=== PATIENT | female | born 1980 | race Caucasian/White ===

== ENCOUNTER 2019-10-08 15:23 | Inpatient (IN) | payer OTHER ==
[~2019-10-08] VITALS: Ht 165.1 cm; Wt 84.4 kg
[2019-10-08] MEDS ORDERED: DEXT 5%/LR + PITOCIN 20UNITS/L 1,000 ML IV SCH ×2 (15:50→19:00)
[2019-10-08] MEDS ORDERED: PENICILLIN G POTASSIUM 5 MMU in DEXT 5% WATER 100 ML IV SCH (16:00)
[2019-10-08] MEDS ORDERED: METHYLERGONOVINE MALEATE 0.2 MG/ML IM PRN (16:00)
[2019-10-08] MEDS ORDERED: LACTATED RINGERS 1,000 ML IV SCH (16:00)
[2019-10-08] MEDS ORDERED: BUTORPHANOL TARTRATE 2 MG/ML VIAL IV PRN (16:00)
[2019-10-08] MEDS ORDERED: LIDOCAINE HCL 1% 20ML VIAL (Pyxis) INJ INFIL SCH (16:00)
[2019-10-08] MEDS ORDERED: MISOPROSTOL 200MCG TABLET VG SCH (16:00)
[2019-10-08] MEDS ORDERED: NALOXONE HCL 0.4 MG/ML 1ML VIAL IM PRN (16:00)
[2019-10-08] MEDS ORDERED: CARBOPROST TROMETHAMINE 250 MCG/ML AMPUL IM PRN (16:00)
[2019-10-08] MEDS ORDERED: TERBUTALINE SULFATE 1MG/ML VIAL SUBCUT SCH (16:15)
[2019-10-08 16:28] LABS: CLARITY URINE CLEAR (CLEAR); COLOR URINE YELLOW (YELLOW); KETONES URINE 2+ (NEGATIVE); LEUKOCYTE ESTERASE URINE 1+ (NEGATIVE); NITRITE URINE NEGATIVE (NEGATIVE); OCCULT BLOOD URINE 1+ (NEGATIVE); PH URINE 6.5 (4.5-8.0); PROTEIN URINE NEGATIVE (NEGATIVE); SPECIFIC GRAVITY URINE 1.018 (1.005-1.030); UROBILINOGEN URINE 0.2 E.U./dL (0.2-1.0)
[2019-10-08 16:29] LABS: BASOPHILS % 0.6 % (0.0-2.0); EOSINOPHILS % 0.3 % (0.0-5.0); HEMATOCRIT. 38.8 % (36.0-48.0); HEMOGLOBIN. 13.5 g/dL (12.0-16.0); LYMPHOCYTES % 32.4 % (20.0-50.0); MEAN CORPUSCULAR HEMOGLOBIN 32.9 pg (28.0-32.0); MEAN CORPUSCULAR VOLUME 94.9 fL (81.0-99.0); MEAN PLATELET VOLUME 12.4 fl (7.4-10.4); MONOCYTES % 5.7 % (2.0-8.0); PLATELET 135 x1000/uL (130-400); RED BLOOD CELL COUNT 4.09 mill/uL (4.2-5.4); RED CELL DISTRIBUTION WIDTH 12.7 % (11.6-14.6)
[2019-10-08] MEDS ORDERED: METOCLOPRAMIDE HCL 10MG/2ML VIAL ONE (16:30)
[2019-10-08] MEDS ORDERED: KETOROLAC 60MG/2ML VIAL IM ONE (16:30)
[2019-10-08] MEDS ORDERED: ONDANSETRON HCL 4MG/2ML INJ ONE (16:30)
[2019-10-08] MEDS ORDERED: BUPIVACAINE HCL/DEXTROSE/PF 0.75% 2ML AMP INJ ONE (16:30)
[2019-10-08] MEDS ORDERED: PHENYLEPHRINE HCL 10 MG/ML 1ML (IV VIAL) IV ONE (16:31)
[2019-10-08] MEDS ORDERED: SODIUM CHLORIDE 0.9% 10ML VIAL ONE ×2 (16:31→16:32)
[2019-10-08 16:35] LABS: INR 0.9; PARTIAL THROMBOPLASTIN TIME 23.1 sec (23.4-31.0)
[2019-10-08] MEDS ORDERED: FENTANYL CITRATE/PF 50MCG/ML 2ML VIAL ONE (16:35)
[2019-10-08] MEDS ORDERED: MORPHINE SULFATE/PF 1MG/ML 10ML AMP ONE (16:35)
[2019-10-08 16:43] LABS: *AMPHETAMINES SCREEN URINE NEGATIVE (NEGATIVE); *BARBITURATES SCREEN URINE NEGATIVE (NEGATIVE); *BENZODIAZEPINES SCREEN URINE NEGATIVE (NEGATIVE); *COCAINE SCREEN URINE NEGATIVE (NEGATIVE); CANNABINOID URINE SCREEN NEGATIVE (NEGATIVE); METHADONE URINE SCREEN NEGATIVE (NEGATIVE); OPIATES URINE SCREEN NEGATIVE (NEGATIVE); PHENCYCLIDINE URINE SCREEN NEGATIVE (NEGATIVE)
[2019-10-08] MEDS ORDERED: KETAMINE HCL 50 MG/ML 10ML ONE (17:06)
[2019-10-08 17:07] LABS: PROTHROMBIN TIME 8.9 sec (9.6-11.0)
[2019-10-08 17:10] LABS: HEPATITIS B SURFACE ANTIGEN NEGATIVE
[2019-10-08 17:20] LABS: BG FRACTION INSPIRED OXYGEN 21; BG HCO3 ACT 20.7 mmol/L (22.0-26.0); BG PCO2 45.3 mmHg (35.0-45.0); BG PH 7.278 (7.350-7.450); BG SAMPLE SITE CORD; BG VENT MODE ROOM AIR
[2019-10-08 17:22] LABS: BG BASE EXCESS -4.1 mmol/L (-2.0-2.0); BG FRACTION INSPIRED OXYGEN 21; BG PCO2 33.9 mmHg (35.0-45.0); BG PH 7.388 (7.350-7.450); BG PO2 < 30.3 mmHg (75.0-100.0); BG SAMPLE SITE CORD; BG VENT MODE ROOM AIR
[2019-10-08] MEDS ORDERED: OXYTOCIN 10 UNITS/ML 1ML ONE (17:23)
[2019-10-08] MEDS ORDERED: CEFAZOLIN SODIUM 1000MG/VIAL ONE (17:23)
[2019-10-08] MEDS ORDERED: DIPHENHYDRAMINE 50MG/ML VIAL IM PRN (18:00)
[2019-10-08] MEDS ORDERED: NALOXONE HCL 0.4 MG/ML 1ML VIAL IV PRN (18:00)
[2019-10-08] MEDS ORDERED: ONDANSETRON HCL 4MG/2ML INJ IM PRN (18:00)
[2019-10-08] MEDS ORDERED: HYDROCODONE/ACETAMINOPHEN 5/325MG TABLET PO PRN (18:30)
[2019-10-08] MEDS ORDERED: INFLUENZA VIRUS VACCINE(AFLURIA) 0.5ML SYR IM ONE (18:30)
[2019-10-08] MEDS ORDERED: BISACODYL 10MG SUPP PR PRN (18:30)
[2019-10-08] MEDS ORDERED: IBUPROFEN 400MG TABLET PO PRN (18:30)
[2019-10-08] MEDS ORDERED: ONDANSETRON HCL 4MG/2ML INJ IV PRN (18:30)
[2019-10-08] MEDS ORDERED: LANOLIN OINT 7GM TUBE TOP PRN (18:30)
[2019-10-08] MEDS ORDERED: TETANUS, DIPHTHERIA, PERTUSSIS VAC/PF 0.5ML (>7YR OLD) IM ONE (18:30)
[2019-10-08] MEDS ORDERED: PENICILLIN G POTASSIUM 2.5 MMU in DEXTROSE 5% WATER 50 ML IV SCH (20:00)
[2019-10-08] MEDS: KETOROLAC 30MG/ML VIAL IV PRN (20:15)
[2019-10-08 20:30] VITALS: BP 121/51
[2019-10-08 21:00] VITALS: BP 122/63
[2019-10-08] MEDS: DOCUSATE SODIUM 100MG CAPSULE PO SCH (21:00)
[2019-10-08] MEDS: SIMETHICONE 80MG TABLET CHEW PO SCH (21:00)
[2019-10-08] MEDS ORDERED: DIPHENHYDRAMINE 25MG CAPSULE PO PRN (21:00)
[2019-10-08 21:30] VITALS: BP 109/56
[2019-10-09 01:29] VITALS: BP 115/62
[2019-10-09] MEDS: KETOROLAC 30MG/ML VIAL IV PRN ×2 (04:19→10:41)
[2019-10-09 05:58] VITALS: BP 100/51
[2019-10-09 07:17] LABS: BASOPHILS % 0.2 % (0.0-2.0); HEMATOCRIT. 29.8 % (36.0-48.0); HEMOGLOBIN. 10.3 g/dL (12.0-16.0); LYMPHOCYTES % 13.5 % (20.0-50.0); MEAN CORPUSCULAR HEMOGLOBIN 32.8 pg (28.0-32.0); MEAN CORPUSCULAR VOLUME 94.5 fL (81.0-99.0); MEAN PLATELET VOLUME 12.7 fl (7.4-10.4); MONOCYTES % 5.7 % (2.0-8.0); NEUTROPHILS % 80.6 % (40.0-76.0); PLATELET 125 x1000/uL (130-400); RED BLOOD CELL COUNT 3.15 mill/uL (4.2-5.4); RED CELL DISTRIBUTION WIDTH 12.5 % (11.6-14.6)
[2019-10-09] MEDS: FERROUS SULFATE 325MG TABLET PO SCH ×3 (07:30→17:44)
[2019-10-09 07:45] VITALS: BP 103/48
[2019-10-09] MEDS: SIMETHICONE 80MG TABLET CHEW PO SCH ×4 (08:20→20:49)
[2019-10-09] MEDS: PRENATAL VIT/FE FUMARATE/FA TABLET PO SCH (09:00)
[2019-10-09 12:00] VITALS: BP 107/53
[2019-10-09 15:59] VITALS: BP 111/60
[2019-10-09] MEDS: IBUPROFEN 800MG TABLET PO PRN ×2 (17:47→23:29)
[2019-10-09 20:00] VITALS: BP 108/53
[2019-10-09] MEDS: DOCUSATE SODIUM 100MG CAPSULE PO SCH (20:48)
[2019-10-10] VITALS: BP 115/62
[2019-10-10 04:50] VITALS: BP 120/67
[2019-10-10 08:06] VITALS: BP 98/51
[2019-10-10] MEDS: FERROUS SULFATE 325MG TABLET PO SCH ×3 (08:19→15:01)
[2019-10-10] MEDS: PRENATAL VIT/FE FUMARATE/FA TABLET PO SCH (08:19)
[2019-10-10] MEDS: IBUPROFEN 800MG TABLET PO PRN ×3 (08:19→21:02)
[2019-10-10] MEDS: SIMETHICONE 80MG TABLET CHEW PO SCH ×4 (08:19→21:02)
[2019-10-10 12:01] VITALS: BP 105/55
[2019-10-10 19:24] VITALS: BP 103/61
[2019-10-10 19:30] VITALS: BP 111/51
[2019-10-10] MEDS: DOCUSATE SODIUM 100MG CAPSULE PO SCH (21:02)
[2019-10-11] MEDS ORDERED: HYDR-4001 PO (01:29)
[2019-10-11] MEDS ORDERED: IBUP-2028 PO (01:29)
[2019-10-11 04:00] VITALS: BP 110/44
[2019-10-11] MEDS: IBUPROFEN 800MG TABLET PO PRN (05:07)
[2019-10-11 08:00] VITALS: BP 108/69
[2019-10-11] MEDS ORDERED: INFLUENZA VIRUS VACCINE(AFLURIA) 0.5ML SYR IM ONE (12:00)
== END 2019-10-11 12:30 | disposition home or self-care (01) | DRG 786 ==
LOC: OBSVTOIN 15:23 → EDSEX 15:23 → 8 EST LDRP 15:23 → 8EST 20:15
PROVIDERS: ADMIT Specialist; ATTEND Specialist
PROC: 10D00Z1 Extraction of Products of Conception, Low, Open Approach (ICD-10-PCS; principal; 2019-10-08)
DX: O32.8XX0 Maternal care for other malpresentation of fetus, not applicable or unspecified (principal); O24.12 Pre-existing type 2 diabetes mellitus, in childbirth; D62 Acute posthemorrhagic anemia; O99.284 Endocrine, nutritional and metabolic diseases complicating childbirth; E03.9 Hypothyroidism, unspecified; F32.9 Major depressive disorder, single episode, unspecified; O99.344 Other mental disorders complicating childbirth; E11.9 Type 2 diabetes mellitus without complications; O90.81 Anemia of the puerperium; O72.3 Postpartum coagulation defects; D69.6 Thrombocytopenia, unspecified; Z3A.37 37 weeks gestation of pregnancy; Z37.0 Single live birth; Z87.891 Personal history of nicotine dependence
CPT/HCPCS: 36415; 36600; 76815; 80305; 81003; 82805; 82962; 86592; 86703; 86762; 86850; 86900; 87340; 88307; 90686; 90715; G0378; J0690; J1885; J2274; J2370; J2405; J2540; J2590; J2765; J3010; J3105; J3490; J7060